=== PATIENT | female | born 1950 | race Caucasian/White ===

== ENCOUNTER → 2016-09-23 | Outpatient (CLI) | payer OTHER ==
[~2016-09-23] VITALS: Ht 177.8 cm; Wt 77.1 kg
[~2016-09-23] MED LIST: CITRACAL PO; EVISTA60 MG PO; LIPITOR10 MG PO; MIRALAX17 GM PO; VENLAFAXIN75 MG/1 T2 PO
--- NOTE | ~2016-09-23 | S ---
[facility] [address] SURGICAL PATH RPT PROCEDURE Name: ARLETTE MARCELINO Room #: REG [facility] Vinnie.#: [id number] Admission: 09/23/16 Date of : 46 Discharge: Report #: [id number] Path Case #: [id number] PATHOLOGY REPORT COLLECTION DATE: 09/23/2016 RECEIVED DATE: 09/23/2016 SUBMITTING PHYS: Dr. Emerson Vance OTHER PHYS: SPECIMEN(S) RECEIVED: A.Bx of polyp at cecum B.Bx of polyp at hepatic flexure C.Bx of polyp at proximal transverse * * * * * * * * * * * * FINAL DIAGNOSIS: A. "BX of polyp at cecum", biopsy: - Colonic mucosa with focal adenomatous change, most consistent with tubular adenoma; no high grade dysplasia. B. "BX of polyp at hepatic flexure", biopsy: - Colonic mucosa with focal adenomatous change, most consistent with tubular adenoma; no high grade dysplasia. C. "BX of polyp at proximal transverse", biopsy: - Tubular adenoma; no high grade dysplasia. COMMENT: Clinical and endoscopic correlation is recommended. (CLW:kristy; 09/24/2016) PATHOLOGIST: Chantal Yates M.D. REPORT ELECTRONICALLY SIGNED BY: Chantal Yates M.D. DATE/TIME: 09/24/2016 13:25 * * * * * * * * * * * * GROSS PATHOLOGY: A. Received in formalin labeled "Arlette Marcelino, BX of polyp at cecum," is a segment of batista soft tissue measuring 0.5 x 0.3 x 0.1 cm in maximum dimension. The specimen is submitted entirely in cassette A1. B. Received in formalin labeled "Arlette Marcelino, BX of polyp at hepatic flexure," is a segment of batista soft tissue measuring 0.5 x 0.2 x 0.2 cm in maximum dimension. The specimen is submitted entirely in cassette B1. C. Received in formalin labeled "Arlette Galan, BX of polyp at proximal transverse," is a segment of batista soft tissue measuring 0.3 x 0.3 x 0.2 cm in maximum dimension. The specimen is submitted entirely in cassette C1. [address] [address] SURGICAL PATH RPT PROCEDURE Name: ARLETTE MARCELINO Room #: [facility]#: [id number] Admission: 09/23/16 Date of : 46 Discharge: Report #: [id number] Path Case #: [id number] (SDY; 09/23/2016) CLINICAL HISTORY: Colon polyps, diverticulosis, internal hemorrhoids INITIAL CPT CODE(S): A; 04420 B; 28962 C; 20418 Professional services performed by [facility] at [address], [place] [address] Technical services performed by [facility] at [address] [place] [address], [address], [place] [address]. [facility] [address] [place] [address] PHONE: [phone] DIRECTOR: Vinh Velez M.D. * * * END OF REPORT * * *
== END | disposition home or self-care (01) ==
LOC: GI 08:10
DX: Z09 Encounter for follow-up examination after completed treatment for conditions other than malignant neoplasm (principal); Z87.19 Personal history of other diseases of the digestive system; D12.0 Benign neoplasm of cecum; D12.3 Benign neoplasm of transverse colon; K57.30 Diverticulosis of large intestine without perforation or abscess without bleeding; K64.8 Other hemorrhoids; Z98.890 Other specified postprocedural states; F32.9 Major depressive disorder, single episode, unspecified; F41.9 Anxiety disorder, unspecified
CPT/HCPCS: 62110; 62900

== ENCOUNTER → 2017-01-11 | Outpatient (CLI) | payer OTHER | LOC: NUC 09:01 | DX: M85.89 Other specified disorders of bone density and structure, multiple sites (principal); E28.39 Other primary ovarian failure; Z78.0 Asymptomatic menopausal state ==

== ENCOUNTER → 2019-09-20 | Outpatient (CLI) | payer OTHER ==
[~2019-09-20] VITALS: Ht 177.8 cm; Wt 74.8 kg
--- NOTE | 2019-09-20 10:32 | P ---
[facility] [place] [address] PROCEDURE REPORT Name: RADHA RIOS Room #: REG [facility]#: [id number] Admission: 09/20/19 Attend Phys: Emerson Vance MD Discharge: Date of : 46 Report #: [id number] THIS REPORT FOR: cc: Tonie Capellan, Tonie Martinez,Emerson Thibodeaux MD ~ CC: Emerson Capellan DATE OF SERVICE: 09/20/2019 OUTPATIENT COLONOSCOPY REPORT BRIEF HISTORY: The patient is a 69-year-old woman with history of colon polyps and 3 adenomas 3 years ago. She presents for high risk screening colonoscopy due to prior history of colon polyps. POSTOPERATIVE DIAGNOSES: 1. Proximal ascending colon polyp. 2. Small internal hemorrhoids. MEDICATIONS: Deep sedation with propofol per anesthesia. SPECIMEN: Proximal ascending colon polyp. ESTIMATED BLOOD LOSS: 3 mL. PROCEDURE: Colonoscopy to cecum and terminal ileum with snare polypectomy. FINDINGS: Prior to propofol sedation, the procedure of colonoscopy was discussed with the patient as well as potential risks and its complications. She indicates she understands and desires to proceed. DESCRIPTION OF PROCEDURE: With the patient in left lateral decubitus position, digital examination was completed, which revealed no abnormalities. Subsequently, the Olympus video colonoscope was introduced into the rectum, advanced under direct vision to the cecum. Done with minimal difficulty. The cecum was identified by the ileocecal valve and the appendiceal orifice. I was able to visualize the distal segment of the terminal ileum, which was inspected and noted to be unremarkable. At that point, the scope was slowly withdrawn and careful circumferential views were obtained. As the scope was slowly withdrawn, the prep was noted to have some minor limitations. Fortunately, we were able to carefully lavaged and aspirated the vast majority of this material and overall a good prep was obtained. As we withdrew the scope, a fairly flat, but somewhat elevated polyp was seen in the proximal ascending colon. It had a thick layer [address] [address] PROCEDURE REPORT Name: RADHA RIOS Room #: REG [facility].#: [id number] Admission: 09/20/19 Attend Phys: Emerson Vance MD Discharge: Date of : 46 Report #: [id number] of mucus and likely represents a serrated adenoma. It was estimated to be about 1 cm in greatest dimension. It was removed by cold snare polypectomy and recovered. The scope was further withdrawn and no additional polypoid lesions were seen. Diverticular disease was not seen. The scope was withdrawn in the rectum, no abnormalities were seen. Upon retroflexion, no abnormalities were seen. Scope was withdrawn. The patient tolerated the procedure well. CONDITION OF THE PATIENT UPON DISCHARGE: Following procedure, the patient drowsy, aroused, conversant and will be discharged home when fully ambulatory. INSTRUCTIONS TO THE PATIENT AND FAMILY AT THE TIME OF DISCHARGE: We will follow up on the path report and make further recommendations. However, at this point, I suggest return in 3 years for high risk screening colonoscopy as I believe this is an advanced adenoma in the proximal colon. Last colonoscopy was in 2017. Withdrawal time from the cecum including cleanup was 20 minutes 26 seconds. <ELECTRONICALLY SIGNED> By: Emerson Vance MD 09/20/19 1032 0844 [id number] Emerson Vance MD /nt
--- NOTE | 2019-09-24 18:06 | PATH ---
[facility] [address] [place] [address] PATHOLOGY RPT PROCEDURE Name: ARLETTE RIOS Room #: REG [facility].#: [id number] Admission: 09/20/19 Date of : 46 Discharge: Report #: [id number] Path Case #: [id number] [facility] Accession Number: [id number] . 01 Material submitted: . colon - POLYP AT PROXIMAL ASCENDING COLON. Modifiers: proximal, ascending . 01 Clinical history: . Hx polyps . 02 Diagnosis: Polyp, at proximal ascending colon, endoscopic biopsy: - Hyperplastic polyp. - Negative for dysplasia. (IUV:ux manager; 09/24/2019) MBR 09/24/2019 1325 Local . 02 Electronically signed: . Letty Villagomez MD, Pathologist NPI- [id number] . 01 Gross description: . The specimen is received in formalin, labeled "Eiker, Arlette, polyp at proximal ascending colon" and consists of a segment of batista-brown tissue measuring 2.0 x 0.8 x 0.1 cm which is entirely submitted in A1. (SDY; 09/21/2019) SYU/SYU 09/21/2019 1031 Local . 02 Pathologist provided ICD-10: K63.5 . 02 CPT . 493317 Specimen Comment: A courtesy copy of this report has been sent to [phone], [phone] Specimen Comment: [phone] Specimen Comment: Report sent to / DR CHUN Performed at: [address] [facility], [place], [place] [id number] MD Henrry Taveras MD Phone: [phone] Performed at: [address] [id number] MD Letty Villagomez MD Phone: [phone]
== END | disposition home or self-care (01) ==
LOC: GI 06:54
PROVIDERS: ATTEND Specialist
DX: Z12.11 Encounter for screening for malignant neoplasm of colon (principal); Z86.010 Personal history of colon polyps; K63.5 Polyp of colon; K64.8 Other hemorrhoids; E78.5 Hyperlipidemia, unspecified; F32.9 Major depressive disorder, single episode, unspecified; F41.9 Anxiety disorder, unspecified; Z11.59 Encounter for screening for other viral diseases; Z98.890 Other specified postprocedural states; Z79.899 Other long term (current) drug therapy
CPT/HCPCS: 62110; 62900

== ENCOUNTER → 2021-03-03 | Outpatient (CLI) | payer OTHER | LOC: NUC 09:40 | PROVIDERS: ATTEND Obstetrics & Gynecology | DX: M85.89 Other specified disorders of bone density and structure, multiple sites (principal) ==